=== PATIENT | male | born 1975 | race Caucasian/White ===

== ENCOUNTER 2017-02-27 15:06 | Emergency (ER) | payer SELFPAY ==
--- NOTE | 2017-02-27 16:55 | ED ORDER SUMMARY ---
..... Patient: CHIN MOISE OrderSheet [facility] VisitID: [id number] [address] [place] [address] 42y, M Registration Date/Time: 02/27/2017 ORDER SHEET Weight: 90.7 kg (stated) Allergies: Amoxicillin GENERAL ORDERS: MEDICATION ORDERS: IV FLUIDS: Dilaudid IV 1 mg (NOW) (15:20 02/27/2017 Meka MENDEZ) (15:23 DDean R.N.) Ativan IV 1 mg (NOW) (15:20 02/27/2017 Meka MENDEZ) (15:23 DDean R.N.) IV Saline Lock (15:21 02/27/2017 Meka MENDEZ) (15:24 DDean R.N.) Zofran IV 4 mg (NOW) (15:22 02/27/2017 Meka MENDEZ) (15:23 DDean R.N.) Dilaudid IV 1 mg (NOW) (15:37 02/27/2017 DDean R.N. verbal order read back to Meka MENDEZ) (15:39 DDean R.N.) Ativan IV 0.5 mg (HIGH ALERT MEDICATION, NOW) (15:38 02/27/2017 DDean R.N. verbal order read back to Meka MENDEZ) (15:39 DDean R.N.) ORDER SHEET NOTES: [Electronically signed by Estella Portillo R.N. (17:51 02/27/2017)] [Electronically signed by Marcos Lawrence MD (08:12 03/01/2017)] [Electronically locked/signed by Estella Portillo R.N. (17:51 02/27/2017)]
--- NOTE | 2017-02-27 16:55 | ED CLINICAL REPORT ---
Clinical Report - Physicians/Mid Levels [facility] [address] [place] [address] 02/27/2017 15:08 Patient: CHIN MOISE Time Seen: 15:15 Feb 27 2017. Arrived- By private vehicle. Historian- patient. CPT: ER phys charges level 5 (#[id number]). HISTORY OF PRESENT ILLNESS Chief Complaint: ABDOMINAL PAIN. 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 Has had an umbilical hernia for years with no problems until today . 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 Has chronic umbilical hernia but is has never hurt like this before. At its maximum, severity described as severe. When seen in the E.D., severity described as severe. Modifying factors- worsened by movement. Not relieved by anything. It is described as "pain" and it is described as located in the periumbilical area. No nausea, loss of appetite, vomiting or diarrhea. Similar symptoms previously: Milder. Seen in office. Diagnosis: (periumbilical hernia). ( Mildly painful chronically and elective surgery suggested.). Recent medical care: Not recently seen/assessed. REVIEW OF SYSTEMS No constipation, black stools, hematemesis, difficulty with urination or pain with urination. No urinary frequency, fever, sore throat, chest pain or difficulty breathing. No cough, joint pain, skin rash, chills or back pain. All systems otherwise negative, except as recorded above. PAST HISTORY Dental Pain. Dental Caries. Hypertension. Umbilica hernia. ADDITIONAL SURGERIES: Hernia Repair. Knee Surgery. Umbilical Hernia Repair. No history of peptic ulcer. No history of gallstones or bowel obstruction. Surgeries: No prior abdominal surgery. Medications: Adderall Oral 20mg TID . Allergies: Amoxicillin.(hives). SOCIAL HISTORY Heavy tobacco smoker (cigarette)- 1 pack per day. Occasional alcohol use. History of drug use: marijuana. ADDITIONAL NOTES The nursing notes have been reviewed. PHYSICAL EXAM Vital Signs: 02/27/2017 15:12 BP: 146/96. HR: 80. RR: 24. O2 saturation: 100%. Temp: 98.2 F. Pain level now: 07/25. Appearance: Alert. Appears to be in pain. Patient in severe distress. Eyes: Eyes normal inspection. ENT: Pharynx normal. Neck: Normal inspection. CVS: Normal heart rate and rhythm. Heart sounds normal. Pulses normal. Respiratory: No respiratory distress. Breath sounds normal. Chest nontender. Abdomen: Soft. Severe tenderness in the periumbilical area (There is an incarcerated umbilical hernia.). Abnormal bowel sounds: diminished. No mass. Back: Normal inspection. Skin: Skin warm. Normal skin color. No rash. Extremities: Extremities exhibit normal ROM. Neuro: Oriented X 3. No motor deficit. No sensory deficit. PROGRESS AND PROCEDURES PROCEDURES (Procedure: Reduction of incarcerated hernia. After adequate analgesia, noted below, gentle pressure applied to hernia until it reduced through the abdominal wall defect. Pain was immediately resolved.). Course of Care: IV NS Dilaudid 1 mg IV times 2 Ativan 1.5 mg IV Pain controlled enough to reduce hernia and resolve the pain. Discussed with Dr Maher who will see patient in office. Pt hernia noted to return , although not painful. It easily reduced and patient taught how to reduce it. Pt knows to return Stat for any pain that develops. Discussed morbidity associated with ischemic bowel. Discussed case with on-call health care provider, (Nika). Reviewed test results. Agreed upon treatment plan. Health care provider will see patient in office. Patient/family counseled. Disposition: Discharged. Condition: stable and improved. CLINICAL IMPRESSION Incarcerated periumbilical hernia : Reduced. INSTRUCTIONS No strenuous activity. Drink plenty of fluids. Follow a soft diet. Warnings: Further evaluation is necessary. SEDATIVE MEDICATION: You were given sedative medication during your visit. Do not drive or operate dangerous machinery. GENERAL WARNINGS: Return or contact your physician immediately if your condition worsens or changes unexpectedly, if not improving as expected, or if other problems arise. Your Current Medications: CONTINUE TAKING THE FOLLOWING MEDICATIONS: Adderall Oral : 20mg TID. OTC Medications: Take acetaminophen (Tylenol, Datril, etc.) according to label instructions. Available over the counter. Understanding of the discharge instructions verbalized by patient. Discharge instructions reviewed with and understanding was verbalized by spouse. Follow-up with: Amadeo Maher MD, General Surgeon, , [facility], [address] [phone] Follow up in one week. Call for an appointment. (Electronically signed by Marcos Lawrence MD 03/01/2017 8:12)
--- NOTE | 2017-02-27 16:55 | ED CLINICAL REPORT ---
Clinical Report - Physicians/Mid Levels [facility] [address] [place] [address] 02/27/2017 15:08 Patient: CHIN MOISE Time Seen: 15:15 Feb 27 2017. Arrived- By private vehicle. Historian- patient. CPT: ER phys charges level 5 (#[id number]). HISTORY OF PRESENT ILLNESS Chief Complaint: ABDOMINAL PAIN. 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 Has had an umbilical hernia for years with no problems until today . 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 Has chronic umbilical hernia but is has never hurt like this before. At its maximum, severity described as severe. When seen in the E.D., severity described as severe. Modifying factors- worsened by movement. Not relieved by anything. It is described as "pain" and it is described as located in the periumbilical area. No nausea, loss of appetite, vomiting or diarrhea. Similar symptoms previously: Milder. Seen in office. Diagnosis: (periumbilical hernia). ( Mildly painful chronically and elective surgery suggested.). Recent medical care: Not recently seen/assessed. REVIEW OF SYSTEMS No constipation, black stools, hematemesis, difficulty with urination or pain with urination. No urinary frequency, fever, sore throat, chest pain or difficulty breathing. No cough, joint pain, skin rash, chills or back pain. All systems otherwise negative, except as recorded above. PAST HISTORY Dental Pain. Dental Caries. Hypertension. Umbilica hernia. ADDITIONAL SURGERIES: Hernia Repair. Knee Surgery. Umbilical Hernia Repair. No history of peptic ulcer. No history of gallstones or bowel obstruction. Surgeries: No prior abdominal surgery. Medications: Adderall Oral 20mg TID . Allergies: Amoxicillin.(hives). SOCIAL HISTORY Heavy tobacco smoker (cigarette)- 1 pack per day. Occasional alcohol use. History of drug use: marijuana. ADDITIONAL NOTES The nursing notes have been reviewed. PHYSICAL EXAM Vital Signs: 02/27/2017 15:12 BP: 146/96. HR: 80. RR: 24. O2 saturation: 100%. Temp: 98.2 F. Pain level now: 07/25. Appearance: Alert. Appears to be in pain. Patient in severe distress. Eyes: Eyes normal inspection. ENT: Pharynx normal. Neck: Normal inspection. CVS: Normal heart rate and rhythm. Heart sounds normal. Pulses normal. Respiratory: No respiratory distress. Breath sounds normal. Chest nontender. Abdomen: Soft. Severe tenderness in the periumbilical area (There is an incarcerated umbilical hernia.). Abnormal bowel sounds: diminished. No mass. Back: Normal inspection. Skin: Skin warm. Normal skin color. No rash. Extremities: Extremities exhibit normal ROM. Neuro: Oriented X 3. No motor deficit. No sensory deficit. PROGRESS AND PROCEDURES PROCEDURES (Procedure: Reduction of incarcerated hernia. After adequate analgesia, noted below, gentle pressure applied to hernia until it reduced through the abdominal wall defect. Pain was immediately resolved.). Course of Care: IV NS Dilaudid 1 mg IV times 2 Ativan 1.5 mg IV Pain controlled enough to reduce hernia and resolve the pain. Discussed with Dr Maher who will see patient in office. Pt hernia noted to return , although not painful. It easily reduced and patient taught how to reduce it. Pt knows to return Stat for any pain that develops. Discussed morbidity associated with ischemic bowel. Discussed case with on-call health care provider, (Nika). Reviewed test results. Agreed upon treatment plan. Health care provider will see patient in office. Patient/family counseled. Disposition: Discharged. Condition: stable and improved. CLINICAL IMPRESSION Incarcerated periumbilical hernia : Reduced. INSTRUCTIONS No strenuous activity. Drink plenty of fluids. Follow a soft diet. Warnings: Further evaluation is necessary. SEDATIVE MEDICATION: You were given sedative medication during your visit. Do not drive or operate dangerous machinery. GENERAL WARNINGS: Return or contact your physician immediately if your condition worsens or changes unexpectedly, if not improving as expected, or if other problems arise. Your Current Medications: CONTINUE TAKING THE FOLLOWING MEDICATIONS: Adderall Oral : 20mg TID. OTC Medications: Take acetaminophen (Tylenol, Datril, etc.) according to label instructions. Available over the counter. Understanding of the discharge instructions verbalized by patient. Discharge instructions reviewed with and understanding was verbalized by spouse. Follow-up with: Amadeo Maher MD, General Surgeon, , [facility], [address] [phone] Follow up in one week. Call for an appointment. (Electronically signed by Marcos Lawrence MD 03/01/2017 8:12)
--- NOTE | 2017-02-27 16:55 | ED ORDER SUMMARY ---
..... Patient: CHIN MOISE OrderSheet [facility] VisitID: [id number] [address] [place] [address] 42y, M Registration Date/Time: 02/27/2017 ORDER SHEET Weight: 90.7 kg (stated) Allergies: Amoxicillin GENERAL ORDERS: MEDICATION ORDERS: IV FLUIDS: Dilaudid IV 1 mg (NOW) (15:20 02/27/2017 Meka MENDEZ) (15:23 DDean R.N.) Ativan IV 1 mg (NOW) (15:20 02/27/2017 Meka MENDEZ) (15:23 DDean R.N.) IV Saline Lock (15:21 02/27/2017 Meka MENDEZ) (15:24 DDean R.N.) Zofran IV 4 mg (NOW) (15:22 02/27/2017 Meka MENDEZ) (15:23 DDean R.N.) Dilaudid IV 1 mg (NOW) (15:37 02/27/2017 DDean R.N. verbal order read back to Meka MENDEZ) (15:39 DDean R.N.) Ativan IV 0.5 mg (HIGH ALERT MEDICATION, NOW) (15:38 02/27/2017 DDean R.N. verbal order read back to Meka MENDEZ) (15:39 DDean R.N.) ORDER SHEET NOTES: [Electronically signed by Estella Portillo R.N. (17:51 02/27/2017)] [Electronically signed by Marcos Lawrence MD (08:12 03/01/2017)] [Electronically locked/signed by Estella Portillo R.N. (17:51 02/27/2017)]
--- NOTE | 2017-02-27 16:55 | ED NURSING NOTES ---
Clinical Report - Nurses Located Within [facility] [address] [place] [address] 02/27/2017 15:08 Patient: CHIN MOISE TRIAGE Triage time 1510. Acuity: LEVEL 3. Chief Complaint: ABDOMINAL PAIN and (pt has hx of umbilical herina, bent over and suddenly had sharp pain in abd "feels lsike something is really twisted in ther"). 15:10. ( last ate 2200 last fluids- 0430am). --15:16 Estella Portillo R.N. 15:12 02/27/17. BP: 146/96. HR: 80. RR: 24. O2 saturation: 100%. Temp: 98.2 F. Pain level now: 07/25. --15:16 Estella Portillo R.N. Weight: 90.7 kg stated. Height/Length: 66 inches Per Patient. BMI: 32.3. --15:13 Estella Portillo R.N. Medications Adderall Oral 20mg TID . --15:15 Estella Portillo R.N. Allergies Amoxicillin.(hives) --15:15 Estella Portillo R.N. History Arrived by private vehicle. Historian: patient. Unaccompanied. No primary care physician. The patient has had nausea and abdominal pain. No vomiting. SOCIAL HX: Heavy tobacco smoker (cigarette)- 1 pack per day. Occasional alcohol use. History of drug use: marijuana. --15:16 Estella Portillo R.N. PROBLEMS: Dental Pain. Dental Caries. Hypertension. Umbilica hernia. --15:14 Estella Portillo R.N. ADDITIONAL SURGERIES: Hernia Repair. Knee Surgery. Umbilical Hernia Repair. --15:14 Estella Portillo R.N. Interventions ID band on patient. To treatment room. --15:16 Estella Portillo R.N. PHYSICAL ASSESSMENT 15:10. To room via wheelchair. Patient gowned. GENERAL / NEURO / PSYCH: Alert. Oriented X 4. Appears in distress. RESPIRATORY: Respirations not labored. CVS: Capillary refill less than 2 seconds. GI / : Abdominal distention. Abdominal tenderness. ( pt c/o testicular pain). SKIN: Skin is warm. ( moist skin). --15:17 Estella Portillo R.N. NURSING PROGRESS NOTES 15:10. Patient gowned. Head of bed elevated. Reassurance given. Patient identifiers checked. Call light placed in reach. Side rails up. Bed placed in lowest position. Patient ready for evaluation- chart flagged. --15:16 Estella Portillo R.N. 15:18 02/27/2017 Site #1 started via IV in the left forearm with an 20g angiocath, with aseptic technique and good blood return; one attempt. Blood drawn: rainbow set. Labeled in the presence of the patient and sent to the lab. Saline lock flushed with 10 mL saline (by Malinda An RN). --15:18 Estella Portillo R.N. 15:19 02/27/2017 Dilaudid (HYDROmorphone HCl PF) IVP 1 mg given over 1 minute(s) via site #1. IV patency established. IV site checked: no pain, redness, or swelling. IV flushed thoroughly pre- and post-medication administration. IVP given by RN. --15:23 Estella Portillo R.N. 15:21 02/27/2017 Zofran (Ondansetron HCl) IVP 4 mg given over 1 minute(s) via site #1. IV patency established. IV site checked: no pain, redness, or swelling. IV flushed thoroughly pre- and post-medication administration. IVP given by RN. --15:23 Estella Portillo R.N. 15:23 02/27/2017 Ativan (LORazepam) IVP 1 mg given over 1 minute(s) via site #1. Sedative warning given to the patient. IV patency established. IV site checked: no pain, redness, or swelling. IV flushed thoroughly pre- and post-medication administration. IVP given by RN. --15:23 Estella Portillo R.N. 15:26 02/27/2017 Dilaudid (HYDROmorphone HCl PF) IVP 1 mg given over 1 minute(s) via site #1. IV patency established. IV site checked: no pain, redness, or swelling. IV flushed thoroughly pre- and post-medication administration. IVP given by RN. --15:39 Estella Portillo R.N. 15:28 02/27/2017 Ativan (LORazepam) IVP 0.5 mg given over 1 minute(s) via site #1. IV patency established. IV site checked: no pain, redness, or swelling. IV flushed thoroughly pre- and post-medication administration. IVP given by RN. --15:39 Estella Portillo R.N. 15:30. ( Pt placed on o2 sat monitor and nasal cannula oxygen placed on pt prior to attempting to reduce hernia). --15:42 Estella Portillo R.N. 15:38 proceedure complete and successful. pt states pain down to a 2/10 resting quietly. --15:43 Estella Portlilo R.N. 15:38 02/27/17. BP: 138/84. HR: 96. RR: 12. O2 saturation: 96% on nasal cannula at 2 liters/minute. Temp: deferred. Pain level now: 2/10. Additional comments: dozing, snoring when not stimulated . --15:44 Estella Portillo R.N. 15:47 02/27/17. BP: 144/85. HR: 97. RR: 14. O2 saturation: 98% on nasal cannula at 2 liters/minute. Temp: deferred. Pain level now: 2/10. Additional comments: waiting on to come. --15:48 Estella Portillo R.N. 16:01 02/27/17. ( contacted pts , she will come crop picker pt after getting kids from school). --16:01 Estella Portillo R.N. 16:15 02/27/17. BP: 128/80. HR: 78. RR: 16. O2 saturation: 97%. Temp: deferred. Pain level now: 2/10. --16:17 Estella Portillo R.N. 16:55. Reassessment after fluids administered and procedure. He is calm and resting quietly. Overall patient status is improved- he states feels better (awake, alert,). SKIN: Skin is warm and dry. --16:55 Christa Braga R.N. 17:03. ( Pt states that he is having worsening pain in his upper left abd"because my abd is flat, and everything is pushed in" ERMD notified, in to see pt, states he will call Dr. Reese back). --17:09 Estella Portillo R.N. 16:55 02/27/2017 Site #1 removed upon discharge. Bandaid applied. --17:09 Estella Portillo R.N. 17:00 02/27/17. BP: 126/76. HR: 74. RR: 18. O2 saturation: 100%. Temp: deferred. Pain level now: 01/23. --17:10 Estella Portillo R.N. DISPOSITION / DISCHARGE 17:00. Condition at departure: improved and stable. No learning barriers present. Discharge instructions provided and reviewed with the patient and spouse. Reviewed medication(s) (tylenol or motrin for pain). Treatments reviewed (don't eat after 12mid on ). Reviewed referrals (michael tomorrow , OR on Monday). Patient and spouse verbalized understanding. Written instructions provided in Luxembourgish. The patient was discharged home and accompanied by spouse. He left the Emergency Department in a wheelchair and via private vehicle. Spouse driving. --17:12 Estella Portillo R.N. 17:05 02/27/17. BP: 126/76. HR: 74. RR: 18. O2 saturation: 100%. Temp: deferred. Pain level now: 01/23. --17:12 Estella Portillo R.N. Locked/Released at 02/27/2017 17:51 by Estella Portillo R.N.
--- NOTE | 2017-03-01 08:12 | ED MED RECONCILIATION SUMMARY ---
Patient: CHIN MOISE Medication Reconciliation Report [facility] VisitID: [id number] [address] [place] [address] 42y, M Registration Date/Time: 02/27/2017 Weight: 90.7 kg Height/Length: 66 in. BMI: 32.3 ALLERGIES: Amoxicillin The patient's Home Medications are listed below: CONTINUE TAKING THE FOLLOWING MEDICATIONS: Adderall Oral 20mg TID The source(s) of the original Home Medication information: Not obtained. The following Medications were given to the patient in the Emergency Department: Dilaudid [IVP] IVP 1 mg, administered: 02/27/2017 3:19:00 PM Zofran [IVP] IVP 4 mg, administered: 02/27/2017 3:21:00 PM Ativan [IVP] IVP 1 mg, administered: 02/27/2017 3:23:00 PM Dilaudid [IVP] IVP 1 mg, administered: 02/27/2017 3:26:00 PM Ativan [IVP] IVP 0.5 mg, administered: 02/27/2017 3:28:00 PM The following Medications were prescribed to the patient: Take acetaminophen (Tylenol, Datril, etc.) according to label instructions. Available over the counter. -- Marcos Lawrence MD
--- NOTE | 2017-03-01 08:12 | ED MED RECONCILIATION SUMMARY ---
Patient: CHIN MOISE Medication Reconciliation Report [facility] VisitID: [id number] [address] [place] [address] 42y, M Registration Date/Time: 02/27/2017 Weight: 90.7 kg Height/Length: 66 in. BMI: 32.3 ALLERGIES: Amoxicillin The patient's Home Medications are listed below: CONTINUE TAKING THE FOLLOWING MEDICATIONS: Adderall Oral 20mg TID The source(s) of the original Home Medication information: Not obtained. The following Medications were given to the patient in the Emergency Department: Dilaudid [IVP] IVP 1 mg, administered: 02/27/2017 3:19:00 PM Zofran [IVP] IVP 4 mg, administered: 02/27/2017 3:21:00 PM Ativan [IVP] IVP 1 mg, administered: 02/27/2017 3:23:00 PM Dilaudid [IVP] IVP 1 mg, administered: 02/27/2017 3:26:00 PM Ativan [IVP] IVP 0.5 mg, administered: 02/27/2017 3:28:00 PM The following Medications were prescribed to the patient: Take acetaminophen (Tylenol, Datril, etc.) according to label instructions. Available over the counter. -- Marcos Lawrence MD
--- NOTE | 2017-03-01 08:12 | ED DISCHARGE INSTRUCTIONS ---
Patient: CHIN MOISE General Instructions [facility] VisitID: [id number] [address] [place] [address] 42y, M Registration Date/Time: 02/27/2017 Incarcerated periumbilical hernia : Reduced. INSTRUCTIONS No strenuous activity. Drink plenty of fluids. Follow a soft diet. Warnings: Further evaluation is necessary. SEDATIVE MEDICATION: You were given sedative medication during your visit. Do not drive or operate dangerous machinery. GENERAL WARNINGS: Return or contact your physician immediately if your condition worsens or changes unexpectedly, if not improving as expected, or if other problems arise. Your Current Medications: CONTINUE TAKING THE FOLLOWING MEDICATIONS: Adderall Oral : 20mg TID. OTC Medications: Take acetaminophen (Tylenol, Datril, etc.) according to label instructions. Available over the counter. Understanding of the discharge instructions verbalized by patient. Discharge instructions reviewed with and understanding was verbalized by spouse. Follow-up with: Amadeo Maher MD, General Surgeon, , [facility], [address] [place] [address] Follow up in one week. Call for an appointment. No strenuous activity. (Electronically signed by Marcos Lawrence MD 03/01/2017 8:12)
--- NOTE | 2017-03-01 08:12 | ED MAR SUMMARY ---
..... Medication Administration Record [facility] [address] [place] [address] Patient: CHIN MOISE Visit ID: [id number] 42y, M Weight: 90.7 kg Height/Length: 66 in BMI: 32.3 ALLERGIES: Amoxicillin Given 15:02/27/2017 Estella Portillo R.N. Medication Administered: DILAUDID [IVP] (HYDROMORPHONE HCL PF), Dose: 1 mg IVP over 1 minute(s), Site: #1 left forearm. Medication Ordered: Dilaudid IV 1 mg (NOW). Given 15:02/27/2017 Estella Portillo R.N. Medication Administered: ZOFRAN [IVP] (ONDANSETRON HCL), Dose: 4 mg IVP over 1 minute(s), Site: #1 left forearm. Medication Ordered: Zofran IV 4 mg (NOW). Given 15:02/27/2017 Estella Portillo R.N. Medication Administered: ATIVAN [IVP] (LORAZEPAM), Dose: 1 mg IVP over 1 minute(s), Site: #1 left forearm. Medication Ordered: Ativan IV 1 mg (NOW). Given 15:02/27/2017 Estella Portillo R.N. Medication Administered: DILAUDID [IVP] (HYDROMORPHONE HCL PF), Dose: 1 mg IVP over 1 minute(s), Site: #1 left forearm. Medication Ordered: Dilaudid IV 1 mg (NOW). Given 15:02/27/2017 Estella Portillo R.N. Medication Administered: ATIVAN [IVP] (LORAZEPAM), Dose: 0.5 mg IVP over 1 minute(s), Site: #1 left forearm. Medication Ordered: Ativan IV 0.5 mg (HIGH ALERT MEDICATION, NOW).
--- NOTE | 2017-03-01 08:12 | ED DISCHARGE INSTRUCTIONS ---
Patient: CHIN MOISE General Instructions [facility] VisitID: [id number] [address] [place] [address] 42y, M Registration Date/Time: 02/27/2017 Incarcerated periumbilical hernia : Reduced. INSTRUCTIONS No strenuous activity. Drink plenty of fluids. Follow a soft diet. Warnings: Further evaluation is necessary. SEDATIVE MEDICATION: You were given sedative medication during your visit. Do not drive or operate dangerous machinery. GENERAL WARNINGS: Return or contact your physician immediately if your condition worsens or changes unexpectedly, if not improving as expected, or if other problems arise. Your Current Medications: CONTINUE TAKING THE FOLLOWING MEDICATIONS: Adderall Oral : 20mg TID. OTC Medications: Take acetaminophen (Tylenol, Datril, etc.) according to label instructions. Available over the counter. Understanding of the discharge instructions verbalized by patient. Discharge instructions reviewed with and understanding was verbalized by spouse. Follow-up with: Amadeo Maher MD, General Surgeon, , [facility], [address] [place] [address] Follow up in one week. Call for an appointment. No strenuous activity. (Electronically signed by Marcos Lawrence MD 03/01/2017 8:12)
--- NOTE | 2017-03-01 08:12 | ED MAR SUMMARY ---
..... Medication Administration Record Formerly [facility] [address] [place] [address] Patient: CHIN MOISE Visit ID: [id number], M Weight: 90.7 kg Height/Length: 66 in BMI: 32.3 ALLERGIES: Amoxicillin Given 15:02/27/2017 Estella Portillo R.N. Medication Administered: DILAUDID [IVP] (HYDROMORPHONE HCL PF), Dose: 1 mg IVP over 1 minute(s), Site: #1 left forearm. Medication Ordered: Dilaudid IV 1 mg (NOW). Given 15:02/27/2017 Estella Portillo R.N. Medication Administered: ZOFRAN [IVP] (ONDANSETRON HCL), Dose: 4 mg IVP over 1 minute(s), Site: #1 left forearm. Medication Ordered: Zofran IV 4 mg (NOW). Given 15:02/27/2017 Estella Portillo R.N. Medication Administered: ATIVAN [IVP] (LORAZEPAM), Dose: 1 mg IVP over 1 minute(s), Site: #1 left forearm. Medication Ordered: Ativan IV 1 mg (NOW). Given 15:02/27/2017 Estella Portillo R.N. Medication Administered: DILAUDID [IVP] (HYDROMORPHONE HCL PF), Dose: 1 mg IVP over 1 minute(s), Site: #1 left forearm. Medication Ordered: Dilaudid IV 1 mg (NOW). Given 15:02/27/2017 Estella Portillo R.N. Medication Administered: ATIVAN [IVP] (LORAZEPAM), Dose: 0.5 mg IVP over 1 minute(s), Site: #1 left forearm. Medication Ordered: Ativan IV 0.5 mg (HIGH ALERT MEDICATION, NOW).
== END 2017-02-27 17:00 | disposition home or self-care (01) ==
LOC: ED SRH 15:06
DX: K42.0 Umbilical hernia with obstruction, without gangrene (principal); I10 Essential (primary) hypertension; F17.210 Nicotine dependence, cigarettes, uncomplicated; F12.10 Cannabis abuse, uncomplicated; Z88.1 Allergy status to other antibiotic agents